=== PATIENT | male | born 1970 | race Caucasian/White ===

== ENCOUNTER 2025-05-31 07:12 | Emergency (ER) | payer BC ==
[2025-05-31] MEDS ORDERED: Tetracaine 0.5% PF 4 ML BOT ONE (07:30)
[2025-05-31] MEDS ORDERED: Fluorescein Opthalmic Strip ONE (07:30)
[2025-05-31] MEDS ORDERED: Acetaminophen 500 MG TAB ONE (07:59)
== END 2025-05-31 08:05 | disposition home or self-care (01) ==
LOC: NAV ERS 07:12
DX: T15.01XA Foreign body in cornea, right eye, initial encounter (principal); I11.0 Hypertensive heart disease with heart failure; I50.9 Heart failure, unspecified; E78.5 Hyperlipidemia, unspecified; F17.220 Nicotine dependence, chewing tobacco, uncomplicated; I48.91 Unspecified atrial fibrillation; Z79.899 Other long term (current) drug therapy; Z79.01 Long term (current) use of anticoagulants; X58.XXXA Exposure to other specified factors, initial encounter
CPT/HCPCS: 65220; 99283